=== PATIENT | female | born 1980 | race Asian ===

== ENCOUNTER 2016-11-23 10:00 | Day surgery (SDC) | payer BC, MEDICAID ==
[2016-11-23] MEDS ORDERED: LACTATED RINGERS 1,000 ML ONE ×2 (10:18→15:47)
[2016-11-23] MEDS ORDERED: IV START KIT ONE (10:19)
[2016-11-23] MEDS ORDERED: ROCURONIUM BROMIDE 10 MG/ML DOSE IV ONE ×10 (12:42→12:43)
[2016-11-23] MEDS ORDERED: LIDOCAINE 2% (MULTI DOSE) 10 ML VIAL ONE (12:44)
[2016-11-23] MEDS ORDERED: PROPOFOL 20 ML IV ONE (12:45)
[2016-11-23] MEDS ORDERED: MIDAZOLAM HCL 1 MG/ML 2ML VIAL ONE (12:46)
[2016-11-23] MEDS ORDERED: FENTANYL 250 MCG/5 ML AMP ONE (12:46)
[2016-11-23] MEDS ORDERED: MEPERIDINE 25 MG/ML SYRINGE ONE (12:46)
[2016-11-23] MEDS ORDERED: CEFAZOLIN SODIUM 1,000 MG VIAL ONE ×2 (13:24)
[2016-11-23] MEDS ORDERED: HYDROMORPHONE HCL 1 MG/ML SYRINGE IV PRN (13:34)
[2016-11-23] MEDS ORDERED: ONDANSETRON 4 MG/2ML 2 ML VIAL IV PRN ×2 (13:34→15:52)
[2016-11-23] MEDS ORDERED: ATROPINE SULFATE 0.4 MG/1 ML VIAL IV PRN (13:34)
[2016-11-23] MEDS ORDERED: HYDRALAZINE HCL 20 MG/1 ML VIAL IV PRN (13:34)
[2016-11-23] MEDS ORDERED: PROMETHAZINE HCL 25 MG/ML VIAL IM PRN (13:34)
[2016-11-23] MEDS ORDERED: MEPERIDINE 25 MG/ML SYRINGE IV PRN (13:34)
[2016-11-23] MEDS ORDERED: NALOXONE HCL 0.4 MG/ML VIAL IV PRN (13:34)
[2016-11-23] MEDS ORDERED: LABETALOL HCL 5 MG/ML 20ML VIAL IV PRN (13:34)
[2016-11-23] MEDS ORDERED: EPHEDRINE SULFATE UD SYR 25 MG 25 MG/5 ML SYRINGE IV ONE (13:38)
[2016-11-23] MEDS ORDERED: LACTATED RINGERS 1,000 ML IV SCH (13:45)
[2016-11-23] MEDS ORDERED: ONDANSETRON 4 MG/2ML 2 ML VIAL ONE (14:13)
[2016-11-23] MEDS ORDERED: FAMOTIDINE 10 MG/ML 2ML VIAL ONE (14:13)
[2016-11-23] MEDS ORDERED: DIPHENHYDRAMINE HCL 50 MG/1 ML VIAL ONE (14:13)
[2016-11-23] MEDS ORDERED: DEXAMETHASONE SOD PHOS 4 MG/1 ML VIAL ONE ×2 (14:13)
[2016-11-23] MEDS ORDERED: HYDROMORPHONE HCL 2 MG/ML SYRINGE ONE (14:16)
--- NOTE | 2016-11-23 15:08 | PCMBPN ---
Brief Post Op Note: Date of Procedure: 11/23/16 Start Time: [] Preoperative Diagnosis: 1. [Abnormal Uterine bleeding] Postoperative Diagnosis: 1. [Same] Procedure: Laparoscopically Assisted Vaginal Hysterectomy] Surgeon: Angelica Quijano DO Assist:[Laron Parker] Anesthesia: [General] Findings: [normal appearing uterus, cervix, fallopian tubes, ovaries] Condition: [stable] Complications: [none] IV Fluids: [1600] mLs of LR [] Urine Output: [50] mLs Estimated Blood Loss: [150] mLs Tourniquet Time: [N/A] Specimens: [uterus and cervix] Implants: [] Drains: [N/A]
[2016-11-23] MEDS ORDERED: FENTANYL 100 MCG/2 ML VIAL ONE (15:35)
[2016-11-23] MEDS: FENTANYL 100 MCG/2 ML VIAL IV PRN ×2 (15:37→15:43)
[2016-11-23] MEDS ORDERED: ACETAMINOPHEN 325 MG TABLET PO PRN (15:52)
[2016-11-23] MEDS ORDERED: DOCUSATE SODIUM 100 MG CAPSULE PO PRN (15:52)
[2016-11-23] MEDS ORDERED: BLISTEX LIPSTICK 1 EACH TP PRN (15:52)
[2016-11-23] MEDS ORDERED: DIPHENHYDRAMINE HCL 50 MG/1 ML VIAL IV PRN (15:52)
[2016-11-23] MEDS ORDERED: MENTHOL/CETYLPYRD 1 EACH LOZENGE PO PRN (15:52)
[2016-11-23] MEDS ORDERED: PROMETHAZINE HCL 25 MG TABLET PO PRN (15:52)
[2016-11-23] MEDS ORDERED: MAG HYDROX/AL HYDROX/SIMETH 30 ML UDCUP PO PRN (15:52)
[2016-11-23] MEDS ORDERED: MAGNESIUM HYDROXIDE/AL HYDROX 30 ML UDCUP PO PRN (15:52)
[2016-11-23] MEDS ORDERED: PUMP TUBING ONE (16:14)
[2016-11-23] MEDS: D5LR 1,000 ML IV SCH (16:24)
[2016-11-23] MEDS: KETOROLAC TROMETHAMINE 30 MG/ML 1 ML VIAL IV SCH ×2 (16:24→22:01)
[2016-11-23 18:12] VITALS: BMI 31.4
[2016-11-23] MEDS: HYDROMORPHONE HCL 1 MG/ML SYRINGE IV PRN ×3 (18:59→21:59)
--- NOTE | 2016-11-23 21:44 | OP ---
ANA LILIA BERMAN [id number] DATE OF : 1980 PREOPERATIVE DIAGNOSIS: Abnormal uterine bleeding. POSTOPERATIVE DIAGNOSIS: Abnormal uterine bleeding. PROCEDURE: LAPAROSCOPIC-ASSISTED VAGINAL HYSTERECTOMY. SURGEON: Dr. Angelica Quijano SENIOR SYSTEMS PROGRAMMER: Dr. Laron Parker ANESTHESIA: General. FINDINGS: Normal appearing uterus, cervix, Fallopian tubes and ovaries. CONDITION: Stable. COMPLICATIONS: None. IV FLUIDS: 1,600 mL of lactated Ringer's. URINE OUTPUT: 50 ESTIMATED BLOOD LOSS: 150 SPECIMENS: Uterus and cervix. IMPLANTS: None. DRAINS: None. PROCEDURE: The patient was taken back to the OR where general anesthesia was easily obtained. She was prepped and draped in a normal sterile fashion in a dorsal lithotomy position and 2 grams of Ancef were given for infection prophylaxis. A weighted speculum was placed in the posterior aspect of the vagina. A right angle retractor was placed in the anterior aspect of the vagina and the cervix was grasped with a single-tooth tenaculum. The uterine manipulator was gently introduced into the uterine cavity and insufflated. Attention was then turned to the patient's abdomen. An 11 mm infraumbilical incision was made. The abdomen was entered under direct visualization with an OptiView port. Two additional 5 mm sites were made on either side of the patient's abdomen under direct visualization. The patient was placed in Trendelenburg position to facilitate view of the operative field. A LigaSure was introduced into the abdominal cavity and the uteroovarian and round ligament were ligated on the patient's left side. The left broad ligament was identified and ligated down to the level of the uterine artery, which was identified and skeletonized. The uterine artery was then ligated. The same procedure was done on the patient's right. At the point, the vesicouterine peritoneum was identified and a bladder flap was created using the LigaSure. The uterosacral ligaments were identified and ligated, and because of the lack of a colpotomy cup and the instruments available to me, attention was then returned to the vagina. The cervix was again grasped with a double-tooth tenaculum and the peritoneum was entered inferiorly. The remainder of the cervix was dissected off. When the uterus was free it was removed from the abdomen via the vagina. The vaginal cuff was grasped with four Allis clamps and 0-Vicryl was used in a running locked fashion to close the cuff. Hemostasis was identified at the time of closure. A last look was made abdominally with the use of the laparoscope, and again hemostasis was identified. The pelvis was irrigated with normal saline, and again hemostasis was identified. The irrigation fluid was sucked-out of the pelvis and the ports were removed from the abdomen. At the umbilical site, the fascia was grasped with a lenny and 0 vicryl was used to reapproximate the fascia. The skin incisions were closed with 4-0 monocryl and covered with bandaids. The procedure was then determined to be complete. The patient was easily aroused from anesthesia and was transferred to PACU in stable condition.
[2016-11-24] MEDS: HYDROMORPHONE HCL 1 MG/ML SYRINGE IV PRN ×5 (00:05→11:42)
[2016-11-24] MEDS: D5LR 1,000 ML IV SCH ×3 (00:10→16:00)
[2016-11-24] MEDS: KETOROLAC TROMETHAMINE 30 MG/ML 1 ML VIAL IV SCH ×2 (06:28→12:27)
[2016-11-24 06:39] LABS: HEMATOCRIT 28.9 % (37.0-47.0); HEMOGLOBIN 9.4 gm/l (12.0-16.0)
--- NOTE | 2016-11-24 10:42 | PDOC5 ---
Hospital Course: ADMIT DATE: DISCHARGE DATE: [] ADMISSION DIAGNOSES: [] PROCEDURES: [] HISTORY OF PRESENT ILLNESS: 36 year old presenting with [abnormal uterine bleeding for hysterectomy.] HOSPITAL COURSE: The patient [presented for her scheduled hysterectomy and underwent laparoscopically assisted vaginal hysterectomy. The procedure was uncomplicated.] By day of discharge the patient is ambulating, eating, voiding, and passing flatus without difficulty. Pain is controlled. - Objective General: Afebrile HEENT: Atraumatic, PERRLA, EOMI Lungs: Clear to Auscultation Bilaterally, Normal Air Movement Cardiovascular: Regular Rate and Rhythm, Normal S1, Normal S2 Abdomen: Soft, Non-Distended, Normal Bowel Sounds Wound CHUTE BOSS: Well Approximated Extremities: Full ROM, Normal Capillary Refill, Normal Pulses Skin: Normal Color, Warm, Dry, Intact Neurological: Grossly Intact, Alert, Oriented x 4 Psych/Mental Status: Normal Affect, Normal Mood - Discharge Plan Disposition: Home Forms: Discharge Instructions Additional Instructions: Follow up with Dr. Quijano in 4-6 weeks. Prescriptions: Oxycodone HCl/Acetaminophen [PERCOCET 5/325 MG TABLET (SHF)] 1 - 2 tab PO Q4H PRN #30 tab PRN Reason: Pain
[2016-11-24] MEDS: OXYCODONE/ACETAMINOPHEN 5/325 MG TABLET PO PRN ×2 (14:01→17:49)
[2016-11-24 17:20] VITALS: BP 86/49
--- NOTE | 2016-11-27 13:03 | SURGPATH ---
[facility] [address] [place] [id number] Patient Name: ANA LILIA BERMAN MR#: [id number] : 1980 Gender: F Specimen #: [id number] Collected: 11/23/2016 Received: 11/26/2016 Reported: 11/27/2016 Submitting Phys: LYDIA CAMPUZANO Copy To Phys: [facility] Clinical History / Pre-Operative Diagnosis: Abnormal uterine bleeding Specimen Source / Surgical Procedure Performed: Uterus and cervix Interpretation: UTERUS, EXCISION: - MYOMETRIUM: ADENOMYOSIS - ENDOMETRIUM: ATROPHY - CERVIX: NO PATHOLOGIC DIAGNOSIS - IUD GROSSLY IDENTIFIED Electronically Signed Out Jonah Berman M.D. Gross Description: The specimen is received in formalin labeled with the patient's name and "uterus and cervix". The specimen consists of a 9.0 x 6.0 x 5.2 cm, 141 g uterus with attached cervix. The serosa is smooth. The endometrium is avalos-red soft and 0.1-0.2 cm. The myometrium is rubbery and faintly trabecular. There is a white rubbery IUD with a short string in the superior endometrial cavity. Car Builder tissue is submitted. A. posterior cervix B. anterior cervix C.-D. posterior uterus, full thickness E.-F. anterior uterus, full thickness Frieda Beckham [place] Microscopic Description: Sections of cervix are unremarkable. The endometrium is thin and atrophic. Focally adenomyosis extends deep into the myometrium. 1: [id number] N80.8
== END 2016-11-24 18:20 | disposition home or self-care (01) ==
LOC: SDC 10:00 → MS 15:59 → SDC 11-24 18:20
PROVIDERS: ATTEND Obstetrics & Gynecology
PROC: 0UT9FZZ Resection of Uterus, Via Natural or Artificial Opening With Percutaneous Endoscopic Assistance (ICD-10-PCS; principal; 2016-11-23)
PROC: 0UTC7ZZ Resection of Cervix, Via Natural or Artificial Opening (ICD-10-PCS; 2016-11-23)
DX: N93.8 Other specified abnormal uterine and vaginal bleeding (principal); N80.8 Other endometriosis
CPT/HCPCS: 85014; 85018; 36415; 86901; 86850 ×3; 58550; J0690 ×2; J1200; J2175; J1170 ×9; J3010 ×2; J1100 ×2; A9270 ×3; J1885 ×4; J2250; J2405 ×2; J7120 ×2; J2001